=== PATIENT | female | born 1950 | race Caucasian/White ===

== ENCOUNTER → 2016-11-12 | Day surgery (SDC) | payer BC ==
[~2016-11-12] MED LIST: ACETAMINOPHEN 325 MG TAB ONE; ACETAMINOPHEN/HYDROcodone 325 MG/5 MG TAB ONE; BUPIVACAINE/EPINEPHRINE 0.5% PF 30 ML VIAL ONE; CLINDAMYCIN PHOS 600 MG/4 ML VIAL ONE; DEXAMETHASONE SOD PHOS 4 MG/ML VIAL ONE; EPINEPHrine HCL (1:1000) 1 MG/ML VIAL ONE; LACTATED RINGER'S 1000 ML INJ 1,000 ML ONE; MIDAZOLAM HCL 2 MG/2 ML VIAL ONE; ONDANSETRON HCL 4 MG/2 ML VIAL IV PUSH ONE; PROPOFOL 200 MG/20 ML AMP IV ONE; SODIUM CHLORIDE 0.9% INJ 10 ML ONE; SODIUM CHLORIDE 0.9% SOLN 100 ML (PAB) BAG IV ONE; TOBRAMYCIN/DEXAMETHASONE OPTH OINT 3.5 GM TUBE ONE; TRIAMCINOLONE ACETONIDE 40 MG/ML VIAL ONE; ceFAZolin INJ 1,000 MG VIAL ONE
--- NOTE | 2016-11-13 07:12 | MP ---
cc: TIEN MOON DATE OF SURGERY 11/12/2016 PREOPERATIVE DIAGNOSIS Left knee medial and lateral meniscus tear. POSTOPERATIVE DIAGNOSES Left knee medial and lateral meniscus tear. PROCEDURE Left knee arthroscopic partial medial and lateral meniscectomy. SURGEON Dr. Tien Moon ANESTHESIA General ESTIMATED BLOOD LOSS Less than 10 cc TOURNIQUET TIME 0 minutes JUSTIFICATION This patient is a 56-year-old female who injured her left knee with persistent symptoms of pain and swelling. In regards to her condition, she has failed conservative treatments. Clinical exam, as well as MRI confirmed the above-named findings. The patient was counseled as to the risks, benefits and alternatives to the above-named proposed surgical procedure. She did wish to proceed with surgery. PROCEDURE IN DETAIL A written consent was obtained. The patient identified by name, taken to the operating room, placed supine on the operating room table, general anesthesia was administered, as well as 600 mg of IV clindamycin. She does have a penicillin allergy. The left thigh carefully placed in the well-padded leg lujan. The left lower extremity prepped and draped using isopropyl alcohol, Hibiclens solution and DuraPrep solution. After an appropriate time-out was performed, a medial and lateral parapatellar arthroscopic portal was established. The patellofemoral joint revealed mild grade 2 chondromalacia. Along the undersurface of the patella, the medial compartment revealed a large complex tear in the posterior horn of the medial meniscus. An arthroscopic biter, followed by an arthroscopic shaver was introduced into the medial compartment to perform a partial medial meniscectomy. The meniscal rim was probed and noted to be stable after meniscectomy. The medial femoral condyle did reveal evidence of grade 2 and some early grade 3 chondromalacia changes. The intercondylar notch revealed the anterior and posterior cruciate ligaments to be intact. The lateral part revealed a tear in the lateral meniscus extending from the posterior horn to the midbody and into the anterior border. An arthroscopic shaver was introduced into lateral compartment to perform a partial lateral meniscectomy. The meniscal rim was probed and noted to be stable. There was evidence of focal grade 3 chondromalacia defect lateral femoral condyle and also lateral to the plateau. At the conclusion of the surgical procedure, 30 cc of 0.5% Marcaine with epinephrine mixed with 40 mm Kenalog was injected into the knee joint. The arthroscopic portals were closed with 3-0 Prolene sutures. Sterile dressing applied. The patient tolerated the procedure well with no intraoperative complications noted. MD SETH Hernandes/COLLEEN /3:40 PM /6:55 AM
== END | disposition home or self-care (01) ==
LOC: ESDC 13:59
PROVIDERS: ATTEND Orthopaedic Surgery Sports Medicine
DX: S83.232A Complex tear of medial meniscus, current injury, left knee, initial encounter (principal); S83.282A Other tear of lateral meniscus, current injury, left knee, initial encounter
CPT/HCPCS: 01400; 29880; J2250; J2405; J3010; J3301; J7120; J0171; J0690; J1100

== ENCOUNTER 2017-03-30 09:20 | Inpatient (IN) | payer BC ==
[~2017-03-30] VITALS: Ht 165.1 cm; Wt 86.2 kg
[2017-04-10] MEDS ORDERED: CETI10CA3 PO (12:26)
[2017-04-10] MEDS ORDERED: VITA150T PO (12:26)
[2017-04-10] MEDS ORDERED: TURM500C3 (12:26)
[2017-04-10] MEDS ORDERED: FISHCAP4 PO (12:26)
[2017-04-10] MEDS ORDERED: COQ150CA PO (12:26)
[2017-04-10] MEDS ORDERED: LACTCAP8 PO (12:26)
[2017-04-10] MEDS ORDERED: MUPI2CRE3 EACH NARE (12:26)
[2017-04-10] MEDS ORDERED: D3 U5000 PO (12:26)
[2017-04-10] MEDS ORDERED: OXYM30SP8 EACH NARE (12:26)
[2017-04-10] MEDS ORDERED: MULTTAB67 PO (12:26)
[2017-04-10] MEDS ORDERED: CINN500C13 PO (12:26)
[2017-04-10] MEDS ORDERED: MAGN1TAB14 PO (12:26)
[2017-04-10] MEDS ORDERED: TH C600T4 PO (12:26)
[2017-04-10] MEDS ORDERED: AZEL1SPR2 EACH NARE (12:26)
[2017-04-10] MEDS ORDERED: TURM1CAP6 PO (12:26)
[2017-04-13] MEDS ORDERED: CLINDAMYCIN 900 MG/NS 100 ML IV SCH ×2 (06:45)
[2017-04-13] MEDS ORDERED: DEXAMETHASONE SOD PHOS 20 MG/5 ML VIAL IV SCH (06:45)
[2017-04-13] MEDS ORDERED: POVIDONE IODINE 7.5% SCRUB 118 ML BOTTLE TOPICAL SCH (06:45)
[2017-04-13] MEDS ORDERED: CHLORHEXIDINE GLUCONATE 4% SOLN 120 ML BTL TOPICAL SCH (06:45)
[2017-04-13] MEDS ORDERED: VANCOMYCIN 1000 MG/NS 250 ML (for <70 kg) IV SCH ×2 (06:45)
[2017-04-13] MEDS ORDERED: ENOX40P SQ (06:51)
[2017-04-13] MEDS ORDERED: HYDR-3288 PO (06:52)
[2017-04-13] MEDS ORDERED: ASPI81CH37 CHEW (06:52)
[2017-04-13 06:57] VITALS: BP 140/68; PULSE 81; RESP 20; TEMP 98.5; O2SAT 94
[2017-04-13] MEDS ORDERED: MONT10TA2 PO (06:57)
[2017-04-13] MEDS ORDERED: SODIUM CHLORIDE 0.9% INJ 100 ML ONE (06:58)
[2017-04-13] MEDS ORDERED: ONDANSETRON HCL 4 MG/2 ML VIAL IVP PRN (07:00)
[2017-04-13] MEDS ORDERED: POVIDONE IODINE 5% (ANTISEPSIS KIT) 4 APPLICATIONS EACH NARE PRN (07:00)
[2017-04-13] MEDS ORDERED: CHLORHEXIDINE GLUCONATE 2 % 1 PACK (2 CLOTHS) TOPICAL PRN (07:00)
[2017-04-13] MEDS ORDERED: MORPHINE SULFATE 4 MG/ML INJ IV PUSH PRN (07:00)
[2017-04-13] MEDS ORDERED: NALOXONE HCL 0.4 MG/ML AMP IV PRN (07:00)
[2017-04-13] MEDS ORDERED: Post-op Orders (for Pharmacy) MISC XX ONE (07:00)
[2017-04-13] MEDS ORDERED: METOPROLOL TARTRATE 25 MG TAB PO PRN (07:00)
[2017-04-13] MEDS ORDERED: SODIUM CHLORID 0.9% 500 ML IV PRN (07:00)
[2017-04-13] MEDS ORDERED: SODIUM CHLORIDE 0.9% FLUSH 5 ML FLUSH IVF PRN (07:00)
[2017-04-13] MEDS ORDERED: INSULIN HUMAN REGULAR 1,000 UNITS/10 ML VIAL SQ PRN (07:00)
[2017-04-13] MEDS ORDERED: ACETAMINOPHEN/HYDROcodone 325 MG/7.5 MG TAB PO PRN (07:00)
[2017-04-13] MEDS ORDERED: ZOLPIDEM TARTRATE 5 MG TAB PO PRN (07:00)
[2017-04-13] MEDS ORDERED: BISACODYL 10 MG SUPP RECTAL PRN (07:00)
[2017-04-13] MEDS ORDERED: LACTATED RINGER'S 1000 ML IV PRN (07:00)
[2017-04-13] MEDS ORDERED: diphenhydrAMINE HCL 50 MG/ML VIAL IV PRN (07:00)
[2017-04-13] MEDS ORDERED: GENTAMICIN SULFATE 80 MG/2 ML VIAL ONE (07:05)
[2017-04-13] MEDS ORDERED: ACETAMINOPHEN 1000 MG/100 ML VIAL IV ONE (07:57)
[2017-04-13] MEDS ORDERED: MIDAZOLAM HCL 2 MG/2 ML VIAL ONE (08:21)
[2017-04-13] MEDS ORDERED: TRANEXAMIC PERI-ARTICULAR 3,000 MG/NS 100 ML P-ARTICULR SCH ×2 (08:30)
[2017-04-13] MEDS ORDERED: SODIUM CHLORIDE 0.9% IV SCH (08:30)
[2017-04-13] MEDS ORDERED: TRANEXAMIC ACID IV SCH (08:30)
[2017-04-13] MEDS ORDERED: ROPIVACAINE PERI-ARTICULAR INJECTION. P-ARTICULR SCH ×5 (08:30)
[2017-04-13] MEDS: SODIUM CHLORIDE 0.9% FLUSH 5 ML FLUSH IVF SCH ×2 (09:00→20:30)
[2017-04-13] MEDS: MAGNESIUM OXIDE 400 MG TAB PO SCH (09:00)
[2017-04-13] MEDS ORDERED: ePHEDrine/NS 25 MG/5 ML SYR IV ONE (10:45)
[2017-04-13] MEDS ORDERED: PROPOFOL 200 MG/20 ML AMP IV ONE (10:45)
[2017-04-13] MEDS ORDERED: DO NOT ADM ANY ANTICOAGULANT DRUGS PRN (10:45)
[2017-04-13] MEDS ORDERED: ONDANSETRON HCL 4 MG/2 ML VIAL IV PUSH ONE (10:45)
[2017-04-13] MEDS ORDERED: PHENYLEPH/NS 1000 MCG/10 ML SYR IV ONE (10:45)
[2017-04-13] MEDS ORDERED: NEOSTIGMINE 3 MG/3 ML SYR IV ONE (10:45)
[2017-04-13] MEDS ORDERED: LACTATED RINGER'S 1000 ML INJ 1,000 ML IV ONE (10:46)
[2017-04-13] MEDS ORDERED: fentaNYL CITRATE 250 MCG/5 ML AMP ONE (10:57)
[2017-04-13] MEDS ORDERED: *morphine SULFATE 8 MG/ML PERIprocedure ONLY ONE ×3 (11:14→12:45)
[2017-04-13] MEDS: SODIUM CHLOR 0.9% 1000 ML INJ 1,000 ML IV SCH ×2 (11:35→16:48)
--- NOTE | 2017-04-13 12:22 | RADRPT ---
EXAM DATE/TIME: 04/13/2017 10:58 [facility] COMPARISON: No previous studies available for comparison. INDICATIONS : Post-op left knee. MEDICAL HISTORY : None. SURGICAL HISTORY : None. ENCOUNTER: Initial ACUITY: 1 day PAIN SCORE: 0/10 LOCATION: Left Knee. FINDINGS: The patient is status post left total knee replacement with prosthesis in good position. No fracture or dislocation is noted. CONCLUSION: 1. Status post left total knee replacement with prosthesis in good position. Marco Antonio Tony MD on April 13, 2017 at 12:11 Board Certified Radiologist. This report was verified electronically.
[2017-04-13 16:00] VITALS: BP 100/53; PULSE 78; RESP 16; TEMP 95.3; O2SAT 94
--- NOTE | 2017-04-13 16:23 | PD.CONS ---
HPI Service [facility] Consult Requested By Dr. Magnus Caraballo Reason for Consult Medical management Primary Care Physician Non-Staff Diagnoses: History of Present Illness This is a 66-year-old female who complained of chronic left knee pain affecting her activities of daily living. She has osteoarthritis and underwent replacement by Dr. Magnus Caraballo who requested consultation to evaluate and manage multiple medical conditions. Anesthesia records reviewed show she was hemodynamically stable. Received 1300 mL crystalloid, EBL 150 mL and urine output 350 mL. She was also given nerve block. She has minimal pain were she received a nerve block. She also reports of nausea. Patient has history of glucose intolerance was placed on metformin which she did not tolerate causing leg cramps, hyperlipidemia started on statins which she also did not tolerate causing muscle pain, asthma stable not on medication and chronic pain managed by nonopioid indications per patient request. She also was treated for UTI with Bactrim and clindamycin. Follow-up urinalysis April 07 showed no evidence of infection. Denies UTI symptoms. All other systems reviewed negative Review of Systems Except as stated in HPI: all other systems reviewed are Neg Past Family Social History Allergies: Coded Allergies: Adhesives (Verified Allergy, Severe, SKIN IRRITATION, 04/10/17) Darvocet-N 100 (Verified Allergy, Severe, Itching, 04/10/17) Penicillin (Verified Allergy, Severe, Itching, 04/10/17) Percocet (Verified Allergy, Severe, Itching, 04/10/17) Hmg-Coa Reductase Inhibitors (Verified Allergy, 04/13/17) muscle pain Metformin (Verified Adverse Reaction, 04/13/17) leg cramps Past Medical History Patient also has deviated septum, left breast says, depression with anxiety, osteopenia, chronic kidney disease stage III, vitamin D deficiency Past Surgical History Right knee arthroplasty, tonsillectomy, tubal ligation, cervical fusion, vaginectomy, Lasix surgery, left cholecystectomy, hemorrhoidectomy, left knee meniscal surgery, rhinoplasty, hysterectomy, rhinoplasty, right shoulder surgery , bilateral foot surgery secondary to spur, lumbar fusion, right knee meniscus surgery Reported Medications Singulair (Montelukast Sodium) 10 Mg Tab 10 Mg PO HS Mupirocin (Mupirocin Calcium (Topical)) 2 % Cre 1 Swab EACH NARE BID Azelastine Nasal Freedom (Azelastine HCl) 0.1% Freedom 1 Freedom EACH NARE BID Nasal Freedom (Oxymetazoline HCl) 0.05 % Spr 1 Freedom EACH NARE DAILY Zyrtec (Cetirizine HCl) 10 Mg Capsule 1 Tab PO DAILY Calcium 600 mg Plus Vit D Tab (Calc/D3/Mag/Zn/Oswaldo/Shlomo/[place]) 1 Each Tablet 1 Tab PO DAILY Coq10 (Coenzyme Q10 (Ubidecarenone)) 50 Mg Cap 100 Mg PO DAILY Super B Complex (Vitamin B Complex Vit C No.4) 150 Mg Tablet 1 Tab PO DAILY Eql Cinnamon (Cinnamon) 500 Mg Cap 1,000 Mg PO TID Magnesium 400 Mg Tab 400 Mg PO DAILY Probiotic (Lactobacillus Acidophilus) 1 Cap Cap 1 Cap PO DAILY D3 Ultra Strength (Cholecalciferol) 5,000 Unit Cap 10,000 Units PO DAILY Fish Oil + D3 (Fish Oil-Cholecalciferol) 1,200-1,000 Mg-Unit Cap 1 Cap PO DAILY Turmeric Complex 500 mg Cap (Turmeric/Turmeric Ext/Pepr Ext) 1 Each Capsule 1, 000 Mg PO DAILY Turmeric (Turmeric (Curcuma Longa)) 500 Mg Cap Multiple Vitamin 1 Tab 1 Tab PO DAILY Family History Lung cancer Social History Ex-smoker. Occasional alcohol use she is Physical Exam Vital Signs Vital Signs Date Time Temp Pulse Resp B/P Pulse Ox O2 Delivery O2 Flow Rate FiO2 04/13/17 12:30 92 14 118/56 97 Nasal Cannula 2 04/13/17 11:45 98.5 100 15 118/57 98 Nasal Cannula 2 04/13/17 11:30 98 16 110/56 99 Nasal Cannula 2 04/13/17 11:15 98 17 109/52 95 Nasal Cannula 2 04/13/17 11:00 101 17 119/57 95 Blow By 4 04/13/17 10:51 98.3 107 17 128/57 93 Blow By 4 04/13/17 06:57 98.5 81 20 140/68 94 Physical Exam GENERAL: This is an obese, well-developed patient, in distress due to nausea SKIN: No rashes, ecchymoses or lesions. Cool and dry. HEAD: Atraumatic. Normocephalic. No temporal or scalp tenderness. EYES: Pupils equal round and reactive. Extraocular motions intact. No scleral icterus. No injection or drainage. ENT: Nose without bleeding, purulent drainage or septal hematoma. Throat without erythema, tonsillar hypertrophy or exudate. Uvula midline. Airway patent. NECK: Trachea midline. No JVD or lymphadenopathy. Supple, nontender, no meningeal signs. CARDIOVASCULAR: Regular rate and rhythm without murmurs, gallops, or rubs. RESPIRATORY: Clear to auscultation. Breath sounds equal bilaterally. No wheezes , rales, or rhonchi. GASTROINTESTINAL: Abdomen soft, non-tender, nondistended.No guarding. MUSCULOSKELETAL: Extremities without clubbing, cyanosis, or edema. Left knee with dry clean dressing NEUROLOGICAL: Awake and alert. Cranial nerves II through XII intact. Motor and sensory grossly within normal limits. Five out of 5 muscle strength in all muscle groups. Normal speech. Laboratory Laboratory Tests Test 04/13/17 07:05 Blood Type A POSITIVE Antibody Screen NEGATIVE Blood Bank Comment Imaging EKG tracing interpreted by me with sinus rhythm no acute ST changes Last Impressions Knee X-Ray 04/13/17 0648 Signed Impressions: Service Date/Time: Thursday, April 13, 2017 10:58 - CONCLUSION: 1. Status post left total knee replacement with prosthesis in good position. Marco Antonio Tony MD Assessment and Plan Assessment and Plan This is a 66-year-old female who complained of chronic left knee pain affecting her activities of daily living. She has osteoarthritis and underwent replacement by Dr. Magnus Caraballo who requested consultation to evaluate and manage multiple medical conditions. Left knee replacement. Stable continue postoperative care with PT, wound care, incentive spirometry, antiemetics, pain management with Lortab and IV morphine and DVT prophylaxis with Lovenox Glucose intolerance was placed on metformin which she did not tolerate causing leg cramps. Monitor fingersticks with slight scale coverage. Diabetic diet. Hyperlipidemia intolerant to statins. Heart healthy diet Asthma stable not on medication. Albuterol as needed Chronic kidney disease stage II. Nonoliguric. Avoid nephrotoxins. Repeat BMP and mag in the morning Discussed Condition With Patient and Vance Niño MD Apr 13, 2017 16:23
[2017-04-13] MEDS ORDERED: DEXTROSE 50% IN WATER 50 ML VIAL(D50) IV PRN (16:30)
[2017-04-13] MEDS ORDERED: RESP: ALBUTEROL 2.5 MG/3 ML NEB (PRN) NEB (16:30)
[2017-04-13] MEDS ORDERED: GLUCAGON 1 MG/ML VIAL OTHER PRN (16:30)
[2017-04-13 19:00] VITALS: BP 102/54; PULSE 65; RESP 16; TEMP 97; O2SAT 96
[2017-04-13] MEDS: VANCOMYCIN INJ 1,000 MG in SODIUM CHLOR 0.9% 250 ML INJ 250 ML IV SCH (20:29)
[2017-04-13] MEDS: INSULIN ASPART SUPPLEMENTAL SCALE SQ SCH (20:29)
[2017-04-14 00:02] VITALS: O2SAT 96
[2017-04-14 00:40] VITALS: BP 96/54; PULSE 65; RESP 17; TEMP 97; O2SAT 94
[2017-04-14] MEDS: SODIUM CHLOR 0.9% 1000 ML INJ 1,000 ML IV SCH ×2 (02:48→12:48)
[2017-04-14 04:35] VITALS: BP 106/51; PULSE 64; RESP 17; TEMP 97.3; O2SAT 95
[2017-04-14] MEDS: INSULIN ASPART SUPPLEMENTAL SCALE SQ SCH ×2 (07:00→11:00)
[2017-04-14 07:17] LABS: HEMATOCRIT 37.8 % (35.0-46.0); MEAN CELL VOLUME 93.9 FL (80.0-100.0); MEAN CORPUSCULAR HEMOGLOBIN 31.6 PG (27.0-34.0); MEAN CORPUSCULAR HGB CONC 33.7 % (32.0-36.0); PLATELET COUNT 235 TH/MM3 (150-450); RED BLOOD COUNT 4.03 MIL/MM3 (4.00-5.30); RED CELL DISTRIBUTION WIDTH 12.8 % (11.6-17.2); REVIEW FLAG FINAL
[2017-04-14 07:44] LABS: BICARBONATE 25.4 MEQ/L (21.0-32.0)
[2017-04-14 08:00] VITALS: BP 104/57; PULSE 66; RESP 16; TEMP 97.8; O2SAT 95
--- NOTE | 2017-04-14 08:14 | PD.ORT.PN ---
Subjective Post Op Day #: 1 Subjective Remarks pain minimal. doing well. Objective Vitals Vital Signs Date Time Temp Pulse Resp B/P Pulse Ox O2 Delivery O2 Flow Rate FiO2 04/14/17 04:35 97.3 64 17 106/51 95 04/14/17 00:40 97.0 65 17 96/54 94 04/14/17 00:02 96 Nasal Cannula 2.00 04/13/17 19:00 97.0 65 16 102/54 96 04/13/17 16:00 95.3 78 16 100/53 94 04/13/17 12:30 92 14 118/56 97 Nasal Cannula 2 04/13/17 11:45 98.5 100 15 118/57 98 Nasal Cannula 2 04/13/17 11:30 98 16 110/56 99 Nasal Cannula 2 04/13/17 11:15 98 17 109/52 95 Nasal Cannula 2 04/13/17 11:00 101 17 119/57 95 Blow By 4 04/13/17 10:51 98.3 107 17 128/57 93 Blow By 4 I/O 04/13/17 04/13/17 04/13/17 04/14/17 04/14/17 04/14/17 07:00 15:00 23:00 07:00 15:00 23:00 Intake Total 1750 ml 480 ml Output Total 700 ml 400 ml Balance 1050 ml 80 ml Intake Oral 480 ml IV Total 500 ml Other 1250 ml Output Urine Total 550 ml 400 ml Estimated Blood Loss 150 ml # Bowel Movements 0 Result Diagram: 04/14/1725 04/14/17 0625 Objective Remarks in bed, nad incision no erythema, no drainage neg homans nvi Assessment & Plan Ortho Post Op Day #: 1 Problem List: Assessment and Plan s/p L TKA wbat daily dressing changes lovenox d/c planning home with [facility] and pt rx in chart f/up dr. ralph 2 weeks cleared for d/c today if pain under control after PT Magnus Jarrett Apr 14, 2017 08:14
--- NOTE | 2017-04-14 08:16 | HHI.DCPOC ---
Discharge Care Plan Diagnosis: (1) Primary localized osteoarthrosis, lower leg Your Health Problems Are: Difficulty with ADL Goals to Promote Your Health * To prevent worsening of your condition and complications * To maintain your health at the optimal level Directions to Meet Your Goals Take your medications as prescribed Follow your dietary instruction Follow activity as directed Keep your appointments as scheduled Take your immunizations and boosters as scheduled If your symptoms worsen call your PCP, if no PCP go to Urgent Care Center or Emergency Room Smoking is Dangerous to Your Health. Avoid second hand smoke Call the 24-hour hour crisis hotline for domestic abuse at Magnus Jarrett Apr 14, 2017 08:16
--- NOTE | 2017-04-14 08:17 | HHI.FF ---
Face to Face Verification Diagnosis: (1) Primary localized osteoarthrosis, lower leg Physical Therapy Gait training, Safety evaluation, Transfer training, bed to chair Knee: Total knee, Protocol: Left, Full weight bearing Left LE Weight Bearing: WB as tolerated Nursing RN: 3 days/week x 2 weeks Nursing: Rhea teaching, Dressing changes Dressing Changes: Daily dressing change I have seen patient Laura Caraballo on 04/14/17. My clinical findings support the need for the requested home health care services because: Limited ability to care for self High risk of falls I certify that my clinical findings support that this patient is homebound because: Post-op weakness Unsteady gait/balance Magnus Jarrett Apr 14, 2017 08:17
[2017-04-14] MEDS ORDERED: CPMMACHINE (08:18)
[2017-04-14] MEDS ORDERED: COMMODE 3-IN-11 MIS (08:18)
[2017-04-14] MEDS: MAGNESIUM OXIDE 400 MG TAB PO SCH (08:46)
[2017-04-14] MEDS: VANCOMYCIN INJ 1,000 MG in SODIUM CHLOR 0.9% 250 ML INJ 250 ML IV SCH (08:46)
[2017-04-14] MEDS: SODIUM CHLORIDE 0.9% FLUSH 5 ML FLUSH IVF SCH (08:46)
[2017-04-14] MEDS: ACETAMINOPHEN/HYDROcodone 325 MG/7.5 MG TAB PO PRN ×2 (08:50→12:41)
[2017-04-14] MEDS ORDERED: ENOXAPARIN SODIUM 40 MG/0.4 ML SYRINGE SQ SCH (10:00)
[2017-04-14 11:06] VITALS: O2SAT 95
--- NOTE | 2017-04-14 11:16 | HHI.PR ---
Subjective Remarks Follow-up orthopedic surgery. She is doing okay or out of bed to chair. She will be discharged later today. Seen with . Discussed with RN Objective Vitals Vital Signs Date Time Temp Pulse Resp B/P Pulse Ox O2 Delivery O2 Flow Rate FiO2 04/14/17 11:06 95 Nasal Cannula 2.00 04/14/17 08:00 97.8 66 16 104/57 95 04/14/17 04:35 97.3 64 17 106/51 95 04/14/17 00:40 97.0 65 17 96/54 94 04/14/17 00:02 96 Nasal Cannula 2.00 04/13/17 19:00 97.0 65 16 102/54 96 04/13/17 16:00 95.3 78 16 100/53 94 04/13/17 12:30 92 14 118/56 97 Nasal Cannula 2 04/13/17 11:45 98.5 100 15 118/57 98 Nasal Cannula 2 04/13/17 11:30 98 16 110/56 99 Nasal Cannula 2 I/O 04/13/17 04/13/17 04/13/17 04/14/17 04/14/17 04/14/17 07:00 15:00 23:00 07:00 15:00 23:00 Intake Total 1750 ml 480 ml Output Total 700 ml 400 ml Balance 1050 ml 80 ml Intake Oral 480 ml IV Total 500 ml Other 1250 ml Output Urine Total 550 ml 400 ml Estimated Blood Loss 150 ml # Bowel Movements 0 Result Diagram: 04/14/17 0625 04/14/17 0625 Imaging Last Impressions Knee X-Ray 04/13/17 0648 Signed Impressions: Service Date/Time: Thursday, April 13, 2017 10:58 - CONCLUSION: 1. Status post left total knee replacement with prosthesis in good position. Marco Antonio Tony MD Objective Remarks Wd WN in [place] CTA RRR Left knee with dry dressing AXOX4 A/P Assessment and Plan This is a 66-year-old female who complained of chronic left knee pain affecting her activities of daily living. She has osteoarthritis and underwent replacement by Dr. Magnus Caraballo who requested consultation to evaluate and manage multiple medical conditions. Left knee replacement. Stable continue postoperative care with PT, wound care, incentive spirometry, antiemetics, pain management with Lortab and IV morphine and DVT prophylaxis with Lovenox Leukocytosis likely reactive. Monitor Glucose intolerance was placed on metformin which she did not tolerate causing leg cramps. Monitor fingersticks with slight scale coverage. Diabetic diet. Hyperlipidemia intolerant to statins. Heart healthy diet Asthma stable not on medication. Albuterol as needed Chronic kidney disease stage II. Nonoliguric. Avoid nephrotoxins. Repeat BMP and mag crea .86 GFR 66 Discharge Planning Stable for dc Vance Niño MD Apr 14, 2017 11:15
[2017-04-14 12:00] VITALS: BP 98/52; PULSE 70; RESP 16; TEMP 97.2; O2SAT 94
[2017-04-14] MEDS ORDERED: DOCUSATE SODIUM 100 MG CAP PO SCH (21:00)
[2017-04-14] MEDS ORDERED: MULTIVITAMINS/MINERALS THERAPEUTIC TAB PO SCH (21:00)
--- NOTE | 2017-04-15 11:03 | MP ---
cc: TIEN MOON M.D. DATE OF SURGERY: 04/13/2017 PREOPERATIVE DIAGNOSIS Left knee osteoarthritis. POSTOPERATIVE DIAGNOSIS Left knee osteoarthritis. PROCEDURE Left total knee arthroplasty. SURGEON Dr. Tien Moon. AIR QUALITY ENGINEER Tien Jarrett PA-C ANESTHESIA Spinal with a femoral nerve block. ESTIMATED BLOOD LOSS 50 cc. COMPLICATIONS None. TOURNIQUET TIME 49 minutes at 250 mmHg. IMPLANTS USED DePuy Attune size 6 posterior stabilized femoral component, size 5 rotating platform tibia baseplate, size 6 polyethylene tibial insert, size 35 patella. JUSTIFICATION The patient is a 66-year-old female with a history of severe end-stage degenerative osteoarthritis involving the left knee joint. She has severe disabling pain with standing and walking ambulation, weightbearing activities and severe pain at rest. She has failed greater than three months of nonoperative conservative treatment to include medication, therapy, injections, ambulatory assisted aids, home exercise program, activity modification and weight loss attempts. X-rays of the left knee reveal severe end-stage osteoarthritis, [id number] joint space narrowing, subchondral sclerosis, subchondral cysts and osteophyte formation with varus deformity. The patient has been counseled as to the risks, benefits and alternatives to a total knee arthroplasty. The risks were discussed include but are not limited to anesthesia, bleeding, infection, damage to nerves and blood vessels, pain, stiffness, failure of the components, blood clot, pulmonary embolism and even . The patient's pain is severe. She favored the benefits over the risks. She did wish to proceed with surgery. PROCEDURE IN DETAIL Written consent was obtained. The patient was identified by name. Spinal anesthesia was administered to the patient. The patient also received an adductor canal femoral nerve block by the anesthesiologist. A well-padded tourniquet was placed on the left thigh. The left lower extremity was prepped and draped using isopropyl alcohol, Hibiclens solution and ChloraPrep solution. After a timeout was performed an Esmarch bandage was used to exsanguinate the left lower extremity. The tourniquet was inflated to 250 mmHg. A longitudinal incision was made over the anterior aspect of the left knee. A medial parapatellar arthrotomy was performed. A patellar resection guide was used to resect 9.5 mm of patella. The patellar resection guide was then placed and three drills were placed. The 35 mm patella trial fit well. Attention was turned to the femur where an intramedullary guide shreyas was placed. The distal femoral guide was set to remove 10 mm of distal femur 5 degrees off the anatomic valgus axis alignment. An oscillating saw was used to perform the distal femoral cut. Attention was then turned to the tibia where an extramedullary tibial guide was set and the stylus was set to remove 5 mm off the lowest portion of the medial tibial plateau. The tibia guide was pinned in place and the tibia cut was performed. A 5 mm spacer block showed full extension. Attention was turned back to the femur. The AP sizing block measured size 6. The anterior reference, 30 degree external rotation guide was used to pin a size [address] Anterior, posterior and chamfer cuts were performed. A size 6 PCL box guide was pinned in place. The PCL was box cut with an oscillating saw. The medial and lateral meniscus remnants were removed as well as bone and soft tissue debris from the posterior portion of the knee. A size 5 tibia baseplate was pinned in place. The tibia was drilled and punched. Trial components were evaluated and final components cemented in place. With the current components the leg could achieve full extension to 0 degrees and flexion to 140. There was no evidence of tibial lift-off. Varus-valgus balance appeared appropriate and symmetric. The patient did have some lateral tracking of the patella and a lateral release was performed which allowed for central patellar tracking. The tourniquet was deflated. Bovie cautery used for hemostasis. The surgical wound was thoroughly irrigated with sterile saline pulse lavage antibiotic-impregnated solution. The arthrotomy incision was closed with #1 Vicryl suture, the subcutaneous layer with 2-0 Vicryl suture, and the skin was closed with Dermabond. Sterile dressing was applied. The patient tolerated the procedure well with no intraoperative complications noted. Tien Jarrett, physician engineer assistant certified, was present during the entire procedure to include patient positioning and the procedure itself. The medical necessity of a physician engineer assistant was indicated in this case due to the complexity of the procedure. He assisted with appropriate manipulation of the leg and also retraction of muscle, tendon, bone and neurovascular structures. He assisted with both resection of bone and also implantation of the prosthetic replacement. MD SETH Hernandes/ROSENDO /10:36 AM /10:35 AM
== END 2017-04-14 15:29 | disposition home health service (06) | DRG 470 ==
LOC: HSDI 04-13 06:12 → N06B 04-13 14:04
PROVIDERS: ADMIT Orthopaedic Surgery Sports Medicine; ATTEND Orthopaedic Surgery Sports Medicine
PROC: 3E0T3CZ (ICD-10-PCS; 2017-04-13)
PROC: 0SRD0J9 Replacement of Left Knee Joint with Synthetic Substitute, Cemented, Open Approach (ICD-10-PCS; principal; 2017-04-13 08:24)
DX: M17.12 Unilateral primary osteoarthritis, left knee (principal); N18.3 Chronic kidney disease, stage 3 (moderate); F32.9 Major depressive disorder, single episode, unspecified; E78.5 Hyperlipidemia, unspecified; J45.909 Unspecified asthma, uncomplicated; G89.29 Other chronic pain; F41.9 Anxiety disorder, unspecified; M85.80 Other specified disorders of bone density and structure, unspecified site; Z87.891 Personal history of nicotine dependence
CPT/HCPCS: 73560; 80048; 82948; 85027; 86850; 86900; 86901; 94150; C1776; J0131; J0171; J0735; J1100; J1580; J1650; J1885; J2250; J2270; J2370; J2405; J2710; J2795; J3010; J3370; J7030; J7050; J7120; L1830